=== PATIENT | female | born 1980 | race Caucasian/White ===

== ENCOUNTER → 2025-06-09 16:42 | Outpatient (CLI) | payer OTHER, SELFPAY ==
--- NOTE | 2025-06-09 16:44 | DI.RAD.S_ITS ---
PROCEDURE: XR ANKLE RT MIN 3V INDICATIONS: Right ankle injury TECHNIQUE: 3 views of the ankle were acquired. COMPARISON: None. FINDINGS: Bones: No fractures or dislocations. Ankle mortise is normally aligned. No suspicious bony lesions. Soft tissues: No tibiotalar joint effusion. Achilles tendon appears normal. Soft tissue swelling of the ankle without radiopaque retained foreign body or gas foci. IMPRESSION: No acute bony abnormality or significant effusion. Dictated by: Yousif Gallagher M.D. on 06/10/2025 at 9:00 Approved by: Yousif Gallagher M.D. on 06/10/2025 at 9:11
== END ==
PROVIDERS: Referring Provider Physician Assistant Medical; Visit Provider Physician Assistant Medical
DX: S99.911A Unspecified injury of right ankle, initial encounter (principal)
CPT/HCPCS: 73610

== ENCOUNTER 2025-08-03 15:11 | Emergency (ER) | payer OTHER, SELFPAY ==
[2025-08-03] VITALS (7 sets, daily range): BP systolic 126–136; BP diastolic 72–92; PULSE 60–69; RESP 16–56; TEMP 36.6; O2SAT 95–98; BMI 26.6
--- NOTE | 2025-08-03 15:18 | EKG_ITS ---
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
--- NOTE | 2025-08-03 15:28 | ED.SOB ---
HPI - SOB/Dyspnea General Chief Complaint: Chest Pain Stated Complaint: sob, chest pain Time Seen by Provider: 08/03/25 15:21 Source: patient Mode of arrival: Ambulatory Limitations: no limitations History of Present Illness HPI Narrative: Patient is a healthy 45-year-old female presenting to day with increasing shortness of breath. She has had some upper respiratory like symptoms for the last couple of days feels like she can not take a deep breath. She denies any significant fever chills or cough. But really feels like when she inhales she is not getting a full breath and therefore feels short of breath. Symptoms have been ongoing for about 2 weeks coughing up clear phlegm she has not had any kind of improvement. She does smoke occasionally but not daily. Related Data Home Medications ?Medication ?Instructions ?Recorded ?Confirmed fluoxetine 20 mg capsule 60 mg PO DAILY 08/10/24 08/03/25 progesterone micronized 200 mg 200 mg PO ONCE PM 08/10/24 08/03/25 capsule quetiapine 25 mg tablet 25 mg PO ONCE PM 08/10/24 08/03/25 Previous Rx's ?Medication ?Instructions ?Recorded albuterol sulfate 90 mcg/actuation 2 puff inhalation Q4-6H PRN 08/03/25 aerosol inhaler shortness of breath or wheezing #8.5 grams Allergies Allergy/AdvReac Type Severity Reaction Status Date / Time No Known Drug Allergies Allergy Verified 08/03/25 15:21 Patient History Medical History Right ankle sprain Right ankle injury Smoking Status: Current some day smoker tobacco type: cigarettes Alcohol type: beer Exam Initial Vital Signs Initial Vital Signs: Vital Signs Pulse Rate 65 08/03/25 15:17 Respiratory Rate 48 H 08/03/25 15:17 Pulse Oximetry 98 08/03/25 15:17 GENERAL: Alert well-appearing 45-year-old female and in no acute distress. HEENT: Head atraumatic,EOMI, pupils reactive, face symmetric, moist mucous membranes CARDIOVASCULAR: Regular rate and rhythm without murmurs, rubs or gallops. RESPIRATORY: Shallow breathing clear breath sounds no respiratory distress no wheezes rales or rhonchi ABDOMEN: Soft, nontender. Normoactive bowel sounds all 4 quadrants. No guarding or rebound. EXTREMITIES: Normal range of motion, no clubbing or edema. Neurovascularly intact NEUROLOGICAL: Alert and oriented x4.Normal gait and speech. Cranial nerves II through XII grossly intact. SKIN: Warm, dry, no laceration, no petechiae, no rashes or lesions. Course Orders Ordered: ED Orders 08/03/25 15:13 EKG-12 Lead Stat 08/03/25 15:25 Complete Blood Count AUTO DIFF Stat Comprehensive Metabolic Panel Stat D Dimer Stat Magnesium Stat NT-proBNP (BNP-Adult 18+) Stat Procalcitonin Stat Troponin I Stat 08/03/25 15:29 RT Consult Eval and Treat NOW 08/03/25 15:30 XR chest 1V Stat Discontinued Medications Albuterol/Ipratropium (Albuterol/Ipratropium 3 Ml Ampul) 3 ml INH NOW ONE Stop: 08/03/25 15:30 Last Admin: 08/03/25 15:46 Dose: 3 ml Vital Signs Vital signs: Vital Signs - 8 hr 08/03/25 15:17 08/03/25 15:18 08/03/25 15:18 Temperature Pulse Rate 65 68 Respiratory Rate 48 H 56 H Blood Pressure 135/92 H Pulse Oximetry 98 98 Oxygen Delivery Method Oxygen Flow Rate 08/03/25 15:21 08/03/25 15:30 08/03/25 15:30 Temperature 97.8 F Pulse Rate 68 64 Respiratory Rate 18 36 H Blood Pressure 135/92 H 136/86 Pulse Oximetry 98 95 Oxygen Delivery Method Room Air Oxygen Flow Rate 08/03/25 15:51 08/03/25 16:00 08/03/25 16:00 Temperature Pulse Rate 60 62 Respiratory Rate 16 35 H Blood Pressure 135/83 Pulse Oximetry 98 98 Oxygen Delivery Method Room Air Oxygen Flow Rate 0 08/03/25 16:53 Temperature 98 F Pulse Rate 69 Respiratory Rate 18 Blood Pressure 126/72 Pulse Oximetry 97 Oxygen Delivery Method Room Air Oxygen Flow Rate MDM - SOB/Dyspnea Lab Data 08/03/25 15:25 08/03/25 15:25 Labs: Lab Results 08/03/25 Range/Units 15:25 WBC 7.2 (4.5-11.0) X10^3/uL RBC 4.12 (4.0-5.2) X10^6/uL Hgb 13.2 (12.0-16.0) g/dL Hct 38.2 (36-46) % MCV 92.6 (80-100) fL MCH 32.1 (26-34) PG MCHC 34.6 (30-36) % RDW 12.8 (11.6-14.8) % Plt Count 285 (150-400) X10^3/uL Neut % (Auto) 69.6 (50-75) % Lymph % (Auto) 16.8 L (25-40) % [place]eline % (Auto) 7.7 (3-14) % Eos % (Auto) 5.2 H (2-4) % Baso % (Auto) 0.7 (0-2) % Neut # (Auto) 5000 (6497-7578) /uL Lymph # (Auto) 1200 (4251-7580) /uL [place]eline # (Auto) 600 (0-900) /uL Eos # (Auto) 400 (0-450) /uL Baso # (Auto) 0 (0-100) /uL D-Dimer 395 (<500) ng/ml Sodium 139 (137-145) mmol/L Potassium 3.8 (3.4-5.1) mmol/L Chloride 104 (98-107) mmol/L Carbon Dioxide 27 (22-32) mmol/L BUN 9 (7-17) mg/dL Creatinine 0.68 (0.52-1.04) mg/dL Estimated GFR > 60 (>60) mL/min BUN/Creatinine Ratio 13.2 (6-22) Glucose 86 (70-99) mg/dL Calcium 8.9 (8.4-10.2) mg/dL Magnesium 1.7 (1.6-2.3) mg/dL Total Bilirubin 0.4 (0.2-1.3) mg/dL AST 27 (14-36) IU/L ALT 16 (<35) IU/L Alkaline Phosphatase 47 (38-126) U/L Troponin I < 0.012 (0.01-0.034) ng/mL NT-Pro-B Natriuret Pep 213 H (<125) pg/mL Total Protein 7.6 (6.3-8.2) g/dL Albumin 4.4 (3.5-5.0) g/dL Globulin 3.2 (1.7-4.1) g/dL Albumin/Globulin Ratio 1.4 (1.0-2.8) Procalcitonin < 0.030 (<0.5) ng/mL Point of Care Testing Test Results Negative Urine Dip Bedside Urine Glucose Negative Bedside Urine Bilirubin - Negative Bedside Urine Ketone - Negative Urine Specific [place] 1.010 Bedside Urine Occult Blood - Negative Bedside Urine pH 7.0 Bedside Urine Protein - Negative Bedside Urine Urobilinogen - Negative Bedside Urine Nitrite - Negative Bedside Urine Leukocytes - Negative Esterase Imaging Data Chest x-ray: Radiologist's Impression: PROCEDURE: XR ANKLE RT MIN 3V INDICATIONS: Right ankle injury TECHNIQUE: 3 views of the ankle were acquired. COMPARISON: None. FINDINGS: Bones: No fractures or dislocations. Ankle mortise is normally aligned. No suspicious bony lesions. Soft tissues: No tibiotalar joint effusion. Achilles tendon appears normal. Soft tissue swelling of the ankle without radiopaque retained foreign body or gas foci. IMPRESSION: No acute bony abnormality or significant effusion. Dictated by: Yousif Gallagher M.D. on 06/10/2025 at 9:00 ECG Data Attestation: I personally reviewed and interpreted this ECG as follows: Interpretation: Sinus rhythm rate 72 WI interval 152 QRS [address] changes no T-wave MDM Narrative Medical decision making narrative: MDM CC: Shortness of Complicating co-morbidities: Healthy Data collected from: Patient Medical records reviewed: Walk-in clinic visit today sent to the ED minimal records Differential considered: Pneumonia acute coronary syndrome pulmonary embolism reactive airway disease Exam documented above, pertinent findings include: Shallow breathing but no acute respiratory distress breath sounds are clear speaks in full sentences no peripheral edema Lab Test results independently reviewed as above. Pertinent findings: CBC no abnormalities D-dimer 395 CMP no electrolyte abnormalities Troponin negative BNP 213 Independently reviewed EKG as above No ischemic changes Imaging studies independently reviewed: No acute cardiopulmonary process Consultations: none Treatments: Albuterol Re-evaluations: Patient not feeling significantly better after albuterol but did make it to the restroom and back without any evidence of hypoxia or shortness of breath Discussion: Patient healthy 45-year-old female presenting today with increasing shortness of breath. She is has some shallow breathing but workup is overall reassuring. She has no evidence of pneumonia on her x-ray no leukocytosis. D-dimer is less than 500 unlikely to be a pulmonary embolism. No significant EKGs changes in troponin is negative. At this time she is speaking full sentences without any kind of respiratory distress she has some mild shallow breathing but not hypoxic or tachycardic. I do suspect some slight reactive airway since she was having some upper respiratory symptoms. We will send her home with albuterol inhaler but I see no need for antibiotics or further imaging at this time. Discussed strict return precautions with patient who understands and agrees. Discharge Plan Departure Patient Disposition: Home Clinical Impression: RAD (reactive airway disease) Instructions: DI for Reactive Airway Disease-Adult Activity Restrictions/Additional Instructions: *You have been diagnosed with reactive airway *What to do: At this time workup in the emergency department is overall reassuring. No need for antibiotics blood work does not show any abnormality. He might be having some inflammation in your lungs preventing some sort shortness of *Continue to take medications as directed Albuterol 1-2 puffs every 4 hours if needed for coughing spells or shortness of *Follow up with your primary care provider in 2-3 days or call [phone] *Return to ER if you should have increasing chest pain weakness shortness of breath palpitations passing or any new, worsening or concerning symptoms Prescriptions: New albuterol sulfate 90 mcg/actuation HFA aerosol inhaler 2 puff inhalation Q4-6H PRN (Reason: shortness of breath or wheezing) Qty: 8.5 0RF No Action progesterone micronized 200 mg capsule 200 mg PO ONCE PM fluoxetine 20 mg capsule 60 mg PO DAILY quetiapine 25 mg tablet 25 mg PO ONCE PM Referrals: Miscellaneous,Doctor, [Primary Care Provider, Medical] Stand Alone Forms: Patient Portal/API
--- NOTE | 2025-08-03 15:30 | DI.RAD.S_ITS ---
PROCEDURE: XR CHEST 1V INDICATIONS: shortness of breath, dyspnea TECHNIQUE: One view of the chest was acquired. COMPARISON: None. FINDINGS: Surgical changes and devices: None. Lungs and pleura: Obscuration of the left hemidiaphragm with blunting the costophrenic angle. Left basilar atelectasis and or infiltrate. Right lung and pleural space clear. Mediastinum: Mediastinal contours appear normal. Heart size is normal. Bones and chest wall: No suspicious bony lesions. Overlying soft tissues appear unremarkable. IMPRESSION: Small left pleural effusion with associated atelectasis and or infiltrate Approved by: Kale Callahan M.D. on 08/03/2025 at 16:02
[2025-08-03 15:41] LABS: Add Manual Diff / Slide Review NO; Hematocrit 38.2 % (36-46); Hemoglobin 13.2 g/dL (12.0-16.0); Lymphocytes Absolute Auto 1200 /uL (1100-4500); Mean Corpuscular HGB Conc 34.6 % (30-36); Mean Corpuscular Hemoglobin 32.1 PG (26-34); Mean Corpuscular Volume 92.6 fL (80-100); Platelet Count 285 X10^3/uL (150-400)
[2025-08-03] MEDS: ALBUTEROL/IPRATROPIUM 3 ML AMPUL INH (15:46)
[2025-08-03 15:55] LABS: Magnesium 1.7 mg/dL (1.6-2.3)
[2025-08-03 15:56] LABS: Alanine Aminotransferase 16 IU/L (<35); Albumin 4.4 g/dL (3.5-5.0); Albumin Globulin Ratio 1.4 (1.0-2.8); Alkaline Phosphatase 47 U/L (38-126); Blood Urea Nitrogen 9 mg/dL (7-17); Calcium 8.9 mg/dL (8.4-10.2); Carbon Dioxide 27 mmol/L (22-32); Chloride 104 mmol/L (98-107); Estimated Glomerular Filt Rate > 60 mL/min (>60); Globulin 3.2 g/dL (1.7-4.1); Glucose 86 mg/dL (70-99); HEMOLYSIS < 15 (0-50); Potassium 3.8 mmol/L (3.4-5.1); Sodium 139 mmol/L (137-145); Total Protein 7.6 g/dL (6.3-8.2)
[2025-08-03 16:08] LABS: NT-proBNP (BNP-Adult 18+) 213 pg/mL (<125); Troponin I < 0.012 ng/mL (0.01-0.034)
[2025-08-03 16:13] LABS: Procalcitonin < 0.030 ng/mL (<0.5)
== END 2025-08-03 16:54 | disposition home or self-care (01) ==
PROVIDERS: Emergency Provider Emergency Medicine
DX: J45.909 Unspecified asthma, uncomplicated (principal); F17.200 Nicotine dependence, unspecified, uncomplicated
CPT/HCPCS: 36415; 71045; 80053; 81003; 81025; 83735; 83880; 84145; 84484; 85025; 85379; 93005; 94640; 99284